=== PATIENT | male | born 1965 | race Caucasian/White ===

== ENCOUNTER → 2017-04-04 | Outpatient (CLI) | payer MEDICARE, MEDICAID ==
[~2017-04-04] MED LIST: ACETAMINOPHEN W1 TA6 PO; ATIVAN 0.50.5 MG/TAB PO; CARAFATE 1GM1 G PO; CARAFATE1 GM PO; FLUPHENAZINE; NEURONTIN100 MG PO; NEURONTIN100 MG/CAP PO; PEPCID 20MG TAB20 MG PO; PERCOCET 325 MG1 TA2 PO; PROTONIX 40MG T40 MG PO; TRAMADOL50 MG PO; TRILEPTAL150 MG PO; ULTRAM 50MG TAB50 MG PO
== END ==
LOC: COL.RAD 08:42
DX: M47.22 Other spondylosis with radiculopathy, cervical region (principal)

== ENCOUNTER → 2017-04-30 | Outpatient (CLI) | payer MEDICARE, MEDICAID | LOC: MHCPAIN 11:28 | DX: G89.29 Other chronic pain (principal); M47.812 Spondylosis without myelopathy or radiculopathy, cervical region; Z87.891 Personal history of nicotine dependence | CPT/HCPCS: G0463 ==

== ENCOUNTER → 2017-05-13 | Outpatient (CLI) | payer MEDICARE, MEDICAID | LOC: MHCPAIN 12:20 | DX: G89.29 Other chronic pain (principal); M50.123 Cervical disc disorder at C6-C7 level with radiculopathy; R51 Headache | CPT/HCPCS: G0463 ==

== ENCOUNTER 2019-12-28 11:55 | Outpatient (CLI) | payer MEDICARE, MEDICAID ==
[~2019-12-28] VITALS: Ht 175.3 cm; Wt 98.4 kg
[~2019-12-28 11:55] MED LIST changes: +MOTRIN 400400 MG/TAB PO; +TYLENOL W/COD1 UDTAB PO
[2019-12-28 12:08] VITALS: BP 172/95; PULSE 73
[2019-12-28 12:50] VITALS: BP 145/91; PULSE 59
--- NOTE | 2019-12-28 12:50 | NUR ---
Pt to Express unit bay 12 via cart from Radiology. Pt able to move self to bed with minimal assist. Bandaid to back is clean, dry, and intact. Pt denies pain or nausea at this time. Will continue to monitor. Call light within reach.
[2019-12-28 13:05] VITALS: BP 141/83; PULSE 56
--- NOTE | 2019-12-28 13:05 | NUR ---
Lab into draw stat orders. Pt denies needs. Call light within reach.
[2019-12-28 13:20] VITALS: BP 130/77; PULSE 59
--- NOTE | 2019-12-28 13:20 | NUR ---
Pt continues to rest. Denies needs. Call light within reach.
[2019-12-28 13:30] LABS: GLUCOSE,CSF 56 mg/dL (40-70); TOTAL PROTEIN,CSF 44 mg/dL (15-45)
[2019-12-28 13:34] LABS: CSF APPEARANCE CLEAR; CSF COLOR COLORLESS
[2019-12-28 13:35] VITALS: BP 138/78; PULSE 53
[2019-12-28 13:35] LABS: CSF RBC 84 /mm3 (0-0)
--- NOTE | 2019-12-28 13:35 | NUR ---
Pt cotninues to rest. Denies needs. Call light within reach.
--- NOTE | 2019-12-28 13:50 | NUR ---
HOB elevated. Pt resting. Coffee given per pt request. Will continue to monitor. Call light within reach.
--- NOTE | 2019-12-28 14:05 | NUR ---
Discharge instructions reviewed. Pt voices understanding. Pt escorted to private car via wheel chair. Pt accompanied home by his friend "Miki."
[2019-12-28 14:36] LABS: CSF MONONUCLEAR 100 % (70-100); CSF POLYMORPHONUCLEAR 0 % (0-6)
[2020-01-03 17:35] LABS: IGG/ALBUMIN SERUM 0.19 (<=0.40)
[2020-01-03 17:44] LABS: ALBUMIN CSF 22.4 mg/dL (<=27.0)
[2020-01-03 17:55] LABS: CSF IGG/ALBUMIN 0.11 (<=0.21); CSF SYNTHESIS RATE 1.64 mg/24 h (<=12); CSF,IGG 2.5 mg/dL (<=8.1); CSF-IGG INDEX 0.58 (<=0.85)
== END 2019-12-28 14:30 | disposition home or self-care (01) ==
LOC: COL.RAD 11:55
PROVIDERS: Psychiatry & Neurology Neurology
DX: G37.9 Demyelinating disease of central nervous system, unspecified (principal); G95.9 Disease of spinal cord, unspecified

== ENCOUNTER 2020-10-06 07:51 | Day surgery (SDC) | payer MEDICARE, MEDICAID ==
[~2020-10-06] VITALS: Ht 175.3 cm; Wt 94.6 kg
[2020-10-06 08:27] VITALS: BP 156/95; PULSE 79; TEMP 98.5
[2020-10-06] MEDS ORDERED: PROTONIX 40MG T40 MG PO (08:46)
[2020-10-06 09:45] VITALS: BP 133/86; PULSE 73; TEMP 97.9
[2020-10-06 10:00] VITALS: BP 133/88; PULSE 81
[2020-10-06 10:15] VITALS: BP 147/88; PULSE 68
[2020-10-06 10:30] VITALS: BP 130/76; PULSE 73
--- NOTE | 2020-10-06 11:38 | NUR ---
PT RETURNED FROM ENDO PROCEDURE ROOM PER CART. PT VSS, AFEBRILE. LUNGS CLEAR, HRR, BOWEL PRESENT X4. PT DENIES NAUSEA OR PAIN AT THIS TIME AND REQUESTS BLUE ENCARNACION MUFFIN AND BLACK COFFEE. WILL CONT TO MONITOR PROGRESS.
--- NOTE | 2020-10-06 11:42 | NUR ---
PT TOLERATING MUFFIN AND PLAIN COFFEE. CALLED HIS FRIEND/RIDE TO GIVE UPDATE PER PT REQUEST. DENIES PAIN OR NAUSEA AT THIS TIME. WILL CONT TO MONITOR.
--- NOTE | 2020-10-06 11:45 | NUR ---
PT CONTINUES TO DENY PAIN OT NAUSEA. TOLERATING PO'S WELL. IV DC'D TO RIGHT HAND. PT TOLERATED WELL. PT VOICES UNDERSTANDING TO DISMISSAL INSTRUCTIONS. DC INSTRUCTIONS SIGNED AND DENIED QUESTIONS. PT WAS DC'D THROUGH THE PT ENTRANCE PER WC. PT FRIEND, ANITA WAS DRIVING VEHICLE.
== END 2020-10-06 10:50 | disposition home or self-care (01) ==
LOC: SDCO 07:51
DX: K21.9 Gastro-esophageal reflux disease without esophagitis (principal); K22.70 Barrett's esophagus without dysplasia; K44.9 Diaphragmatic hernia without obstruction or gangrene; I10 Essential (primary) hypertension; J45.909 Unspecified asthma, uncomplicated; M47.892 Other spondylosis, cervical region; F31.9 Bipolar disorder, unspecified; F41.9 Anxiety disorder, unspecified; Z87.891 Personal history of nicotine dependence; Z20.822 Contact with and (suspected) exposure to COVID-19; Z79.899 Other long term (current) drug therapy; Z88.1 Allergy status to other antibiotic agents; Z88.8 Allergy status to other drugs, medicaments and biological substances
CPT/HCPCS: J2704

== ENCOUNTER 2021-02-28 11:07 | Day surgery (SDC) | payer MEDICARE, MEDICAID ==
[2021-02-28] VITALS (7 sets, daily range): BP systolic 125–166; BP diastolic 72–92; PULSE 55–76; TEMP 97.9–99.5
[~2021-02-28] VITALS: Ht 175.3 cm; Wt 85.8 kg
[2021-02-28] MEDS ORDERED: OMNICEF 300MG300 MG PO (12:01)
--- NOTE | 2021-02-28 14:40 | NUR ---
Patient returns to room 3 per cart from PACU accompanied by Roe TELLES and is awake and alert. Exofin skin glue covering right groin incision dry and intact. IV fluids infusing and site is free of redness. Temp 97.4 and room air 96%. Siderails up x2 and call light in reach. Denies pain or nausea.
--- NOTE | 2021-02-28 14:55 | NUR ---
Resting and is sippingn on water.
--- NOTE | 2021-02-28 15:10 | NUR ---
Medicated with Export 5mg 2 tabs for complaints of pain at 5/10. Eating muffin and drinking diet Pepsi.
--- NOTE | 2021-02-28 15:25 | NUR ---
Resting and offers no complaints.
--- NOTE | 2021-02-28 15:40 | NUR ---
Continues to sip on Pepsi and eat muffins.
--- NOTE | 2021-02-28 15:50 | NUR ---
Assisted up to the bathroom and gait steady. Voids and returns to room. IV was converted to INT.
--- NOTE | 2021-02-28 16:00 | NUR ---
INT discontinued and site is free of redness. Dresses self. Denies further pain or nausea.
--- NOTE | 2021-02-28 16:07 | NUR ---
Dismissal instructions given and voices understanding of these.
--- NOTE | 2021-02-28 16:13 | NUR ---
Patient dismissed to home driven by friend and taken to the front door per wheelchair and assisted into vehicle with dismissal instructions in hand.
== END 2021-02-28 16:13 | disposition home or self-care (01) ==
LOC: SDCO 11:07
DX: N50.811 Right testicular pain (principal); N50.82 Scrotal pain; N45.1 Epididymitis; I10 Essential (primary) hypertension; J45.909 Unspecified asthma, uncomplicated; K21.9 Gastro-esophageal reflux disease without esophagitis; K22.70 Barrett's esophagus without dysplasia; M19.90 Unspecified osteoarthritis, unspecified site; F41.9 Anxiety disorder, unspecified; F31.9 Bipolar disorder, unspecified; Z79.899 Other long term (current) drug therapy; Z20.822 Contact with and (suspected) exposure to COVID-19; Z87.891 Personal history of nicotine dependence
CPT/HCPCS: J0690; J1170; J2704; J3010; J7120

== ENCOUNTER 2021-10-14 07:06 | Emergency (ER) | payer MEDICARE, MEDICAID ==
[~2021-10-14] VITALS: Ht 172.7 cm; Wt 72.7 kg
[~2021-10-14 07:06] MED LIST changes: +OMNICEF 300MG300 MG PO
[2021-10-14 07:17] VITALS: TEMP 97.7
[2021-10-14 07:51] LABS: BASO # 0.1 K/mm3 (0.0-0.2); BASO % 0.9 % (0.0-2.0); EOS # 0.1 K/mm3 (0.0-0.7); EOS % 1.1 % (0.0-4.0); GRAN # 4.7 K/mm3 (1.4-6.5); GRAN % 70.9 % (42.2-75.2); HEMATOCRIT 43.6 % (42.0-52.0); HEMOGLOBIN 15.9 g/dl (13.5-18.0); LYMPH % 14.8 % (20.0-51.0); MEAN CELL VOLUME 87 fl (80.0-100.0); MEAN CORPUSCULAR HEMOGLOBIN 32 pg (27-31); MEAN CORPUSCULAR HGB CONC 37 g/dl (33.0-37.0); MEAN PLATELET VOLUME 10.5 fl (7.4-10.4); MONO # 0.8 K/mm3 (0.1-0.6); MONO % 11.8 % (1.7-9.3); PLATELET COUNT 292 K/mm3 (130-400); RED BLOOD COUNT 5.02 M/mm3 (4.20-5.60); REDCELL DISTRIBUTION WIDTH-CV 12.5 % (11.5-14.5)
[2021-10-14 08:10] LABS: ALANINE AMINOTRANSFERASE 21 U/L (0-55); ALBUMIN 4.3 gm/dL (3.5-5.0); ALKALINE PHOSPHATASE 83 U/L (40-150); ANION GAP 10 mmol/L (7-16); AST,SGOT 15 U/L (5-34); BILIRUBIN,TOTAL 0.7 mg/dL (0.2-1.2); BLOOD UREA NITROGEN 8 mg/dL (8-26); CALCIUM 9.1 mg/dL (8.4-10.2); CARBON DIOXIDE 21 mmol/L (22-29); CHLORIDE 106 mmol/L (98-107); CREATININE, serum 0.79 mg/dL (0.72-1.25); GLUCOSE 112 mg/dL (70-99); POTASSIUM 3.7 mmol/L (3.5-4.5); SODIUM 137 mmol/L (136-145); TOTAL PROTEIN 6.9 gm/dL (6.2-8.1)
[2021-10-14 08:17] LABS: TROPONIN-I < 0.010 ng/mL (0.00-0.033)
[2021-10-14 09:05] VITALS: BP 154/96; PULSE 72
[2021-10-15] MEDS ORDERED: NEB MC (17:41)
[2021-10-15] MEDS ORDERED: ALBUTEROL0.83 MG/ML IH (17:41)
[2021-10-15] MEDS ORDERED: PREDNISONE20 MG PO (17:41)
== END 2021-10-14 09:05 | disposition home or self-care (01) ==
LOC: COL.ER 07:06
PROVIDERS: Emergency Medicine
DX: J40 Bronchitis, not specified as acute or chronic (principal); Z87.891 Personal history of nicotine dependence; Z20.822 Contact with and (suspected) exposure to COVID-19
CPT/HCPCS: J8540

== ENCOUNTER 2021-10-15 15:57 | Emergency (ER) | payer MEDICARE, MEDICAID ==
[2021-10-15 16:06] VITALS: TEMP 98.1
[2021-10-15] MEDS ORDERED: ALBUTEROL0.83 MG/ML IH (17:41)
[2021-10-15] MEDS ORDERED: PREDNISONE20 MG PO (17:41)
[2021-10-15] MEDS ORDERED: NEB MC (17:41)
[2021-10-15 17:53] VITALS: BP 154/88; PULSE 88
== END 2021-10-15 17:53 | disposition home or self-care (01) ==
LOC: COL.ER 15:57
DX: J40 Bronchitis, not specified as acute or chronic (principal); Z87.891 Personal history of nicotine dependence

== ENCOUNTER → 2022-11-22 | Outpatient (CLI) | payer MEDICARE, MEDICAID ==
[~2022-11-22] MED LIST changes: +ALBUTEROL0.83 MG/ML IH; +NEB MC; +PREDNISONE20 MG PO
== END ==
LOC: COL.RAD 09:59
DX: M54.50 Low back pain, unspecified (principal); Z98.890 Other specified postprocedural states
CPT/HCPCS: A9575

== ENCOUNTER 2023-12-18 08:00 | Outpatient (RCR) | payer MEDICARE, MEDICAID | END 2023-12-21 | disposition home or self-care (01) | LOC: MKS.ESL.PT | DX: M47.812 Spondylosis without myelopathy or radiculopathy, cervical region (principal); M54.9 Dorsalgia, unspecified ==